=== PATIENT | male | born 1965 | race Caucasian/White ===

== ENCOUNTER 2021-03-11 04:21 | Day surgery (SDC) | payer OTHER ==
[2021-03-10 10:49] VITALS: BMI 25.0
[2021-03-11] MEDS ORDERED: PROPOFOL 20 ML ONE (08:52)
[2021-03-11] MEDS ORDERED: MIDAZOLAM HCL 2 MG/2 ML SINGLE DOSE VIAL ONE ×2 (08:52→08:59)
[2021-03-11] MEDS ORDERED: KETOROLAC TROMETHAMINE 30 MG/1 ML VIAL ONE (09:11)
[2021-03-11 11:35] VITALS: BP 132/79; PULSE 58; TEMP 97.9
== END 2021-03-11 11:00 | disposition home or self-care (01) ==
LOC: EDSEX → JASU-SURG 04:21
PROVIDERS: ATTEND Urology
PROC: 0TF3XZZ Fragmentation in Right Kidney Pelvis, External Approach (ICD-10-PCS; principal; 2021-03-11 08:45)
DX: N20.0 Calculus of kidney (principal); I10 Essential (primary) hypertension; E11.9 Type 2 diabetes mellitus without complications; Z79.84 Long term (current) use of oral hypoglycemic drugs
CPT/HCPCS: 82962